=== PATIENT | male | born 1965 | race African-American/Black ===

== ENCOUNTER → 2016-08-29 | Day surgery (SDC) | payer BC ==
[~2016-08-29] MED LIST: ACID REDUCER150 MG PO; ASPIRIN EC81 M1 PO; FLEXERIL10 MG PO; IBUPROFEN800 MG PO; INDOMETHACIN25 MG PO; INHALER INH; IRON325 MG PO; LIPITOR PO; LISINOPRIL PO; MEDROL DOSEPAK4 MG PO; METOPROLOL SUC100 MG PO; NAPROXEN PO; ULTRAM PO; VICODIN 5/1 TAB 5/50 PO; ZESTORETIC 10-1 EAC1 PO; ZOCOR PO
--- NOTE | ~2016-08-29 | OR ---
Unit #: [id number] #: [id number] Patient: SVETLANA PETE [id number] [address] [address] [id number] MR#: [id number] NAME: SVETLANA PETE ROOM: Date of Procedure: 08/29/2016 Admission Date: 08/29/2016 Surgeon: Jaylon Wallis M.D. : 1965 Attending Physician: Jaylon Wallis M.D. Referring Physician: Jaylon Wallis M.D. Primary Care Physician: [facility] OPERATIVE REPORT PROCEDURE PERFORMED Colonoscopy to cecum. INDICATIONS FOR PROCEDURE 1. Normal mucosa. No polyps, masses, or colitis. 2. Good prep. PLAN Repeat colonoscopy in 5 years given his brother's history of colon cancer. DESCRIPTION OF PROCEDURE The patient was explained of the procedure, risks, and benefits along with the risks and benefits of anesthesia. He was brought to the endoscopy room. Propofol anesthesia was given. Rectal exam was done, which was normal. Colonoscope was lubricated, passed up the rectum, advanced under direct vision all the way to the cecum. Cecum was identified by ileocecal valve and appendiceal orifice. I then started to pull the scope out carefully looking. No polyps, masses, or colitis were seen. Mucosa was normal and healthy. Prep was good. I retroflexed in the rectum, small hemorrhoids were seen. The scope was gently pulled out. He tolerated it well. Dictated by... Meir Marquez/clemente TD: 08/29/2016 14:23 JOB #: [id number] OPERATIVE REPORT Page 1 of 1 X Jaylon Wallis MD X PROCEDURE OPERATIVE NOTE
== END | disposition home or self-care (01) ==
LOC: COPS 08-15 08:00
DX: Z12.11 Encounter for screening for malignant neoplasm of colon (principal); K64.9 Unspecified hemorrhoids; I25.10 Atherosclerotic heart disease of native coronary artery without angina pectoris; I10 Essential (primary) hypertension; J45.909 Unspecified asthma, uncomplicated; K21.9 Gastro-esophageal reflux disease without esophagitis; Z87.891 Personal history of nicotine dependence; Z80.0 Family history of malignant neoplasm of digestive organs; Z79.82 Long term (current) use of aspirin; Z79.1 Long term (current) use of non-steroidal anti-inflammatories (NSAID); Z79.899 Other long term (current) drug therapy; Z95.5 Presence of coronary angioplasty implant and graft